=== PATIENT | male | born 1975 | race Caucasian/White ===

== ENCOUNTER 2017-07-11 06:15 | Emergency (ER) | payer OTHER ==
[~2017-07-11] VITALS: Ht 180.3 cm; Wt 100.6 kg
[~2017-07-11 06:15] MED LIST: AMOX TR-K CLV1 EAC4 PO; CIPRO500 MG PO; FLAGYL500 MG PO; HYDROCODON-ACE1 EAC7 PO; LORTAB 5-325 M1 EACH PO; MEN'S ONE DAIL1 EACH PO; NAPROSYN-EC500 MG PO; NORCO 5/3251 TABLET PO; ZOFRAN ODT4 MG PO; ZOFRAN4 MG PO
[2017-07-11 07:17] LABS: EOSINOPHIL (%) 2.9 % (0-5); EOSINOPHIL COUNT 0.2 K/uL (0-0.3); HEMATOCRIT 41.4 % (38.0-50.0); IMMATURE GRANULOCYTE (%) 0.3 % (0.0-0.7); INSTRUMENT ABS NEUTROPHIL CT 3.7 K/uL; MCH 32.5 PG (29.0-34.0); MCHC 35.5 G/DL (30.0-36.0); MCV 91.4 FL (86-99); MEAN PLAT.VOLUME 8.6 uM^3 (9.0-12.4); MONOCYTE (%) 11.3 % (3-12); MONOCYTE COUNT 0.8 K/uL (0-0.8); NEUTROPHIL (%) 55.6 % (45-76); NEUTROPHIL COUNT 3.7 K/uL (1.8-6.4); PLATELET COUNT 254 K/uL (156-360); RBC DIS.WIDTH-CV 11.3 % (11.8-14.6); RBC DIS.WIDTH-SD 38.3 % (39-53); RED BLOOD COUNT 4.53 M/uL (4.00-5.50); WHITE BLOOD COUNT 6.7 K/uL (4.1-10.2)
[2017-07-11 07:37] LABS: CHLORIDE 108 mEq/L (99-109); SODIUM 138 mEq/L (136-147)
[2017-07-11 07:40] LABS: GLUCOSE 103 mg/dL (70-99)
[2017-07-11 07:41] LABS: ANION GAP 5 MEQ/L (2-14)
[2017-07-11 07:42] LABS: TOTAL BILIRUBIN 0.8 mg/dL (0.0-1.0)
[2017-07-11 07:43] LABS: ALKALINE PHOSPHATASE 42 IU/L (3-129); GFR ESTIMATE (CALCULATED) > 59 mL/min/ (58.99-99999)
[2017-07-11 07:44] LABS: UREA NITROGEN (BUN) 13 mg/dL (9-23)
[2017-07-11 07:47] LABS: LIPASE 35 U/L (1.0-51.0)
[2017-07-11 08:01] LABS: ADD MIUA? NO; BILIRUBIN NEGATIVE; BLOOD NEGATIVE; COLOR STRAW ((YELLOW)); GLUCOSE (STRIP) NEGATIVE; KETONES NEGATIVE; LEUKOCYTES NEGATIVE; NITRITE NEGATIVE; PROTEIN (STRIP) NEGATIVE; SPECIFIC GRAVITY 1.005 (1.000-1.030); UCUL ADDED? NO; UROBILINOGEN 0.2 MG/DL (0.2-1.0)
[2017-07-11] MEDS ORDERED: AUGMENTIN875 MG PO (11:03)
[2017-07-11 11:22] VITALS: BP 140/94
== END 2017-07-11 11:22 | disposition home or self-care (01) ==
LOC: EME 06:15
PROVIDERS: Emergency Medicine
DX: K52.9 Noninfective gastroenteritis and colitis, unspecified (principal); Z90.49 Acquired absence of other specified parts of digestive tract; Z88.2 Allergy status to sulfonamides
CPT/HCPCS: 74177; 80053; 81003; 83690; 85025; 99281; 99285; J2405; J7030

== ENCOUNTER 2018-01-19 11:35 | Emergency (ER) | payer OTHER ==
[~2018-01-19] VITALS: Ht 170.2 cm; Wt 101.9 kg
[~2018-01-19 11:35] MED LIST changes: +AUGMENTIN875 MG PO
[2018-01-19 12:24] LABS: HEMATOCRIT 38.8 % (38.0-50.0); MCH 32.7 PG (29.0-34.0); MCHC 36.1 G/DL (30.0-36.0); MCV 90.7 FL (86-99); PLATELET COUNT 250 K/uL (156-360); RBC DIS.WIDTH-CV 11.9 % (11.8-14.6); RBC DIS.WIDTH-SD 39.7 % (39-53); RED BLOOD COUNT 4.28 M/uL (4.00-5.50)
[2018-01-19 12:34] LABS: ALBUMIN 4.4 g/dL (3.2-4.8)
[2018-01-19 12:35] LABS: CHLORIDE 107 mEq/L (99-109); POTASSIUM 4.3 mEq/L (3.7-5.4); SODIUM 140 mEq/L (136-147)
[2018-01-19 12:37] LABS: GLUCOSE 109 mg/dL (70-99); TOTAL PROTEIN 7.2 g/dL (6.4-8.3)
[2018-01-19 12:39] LABS: TOTAL BILIRUBIN 0.6 mg/dL (0.0-1.0)
[2018-01-19 12:39] LABS: APPEARANCE CLEAR ((CLEAR)); BILIRUBIN NEGATIVE; BLOOD NEGATIVE; COLOR COLORLESS ((YELLOW)); GLUCOSE (STRIP) NEGATIVE; KETONES NEGATIVE; LEUKOCYTES NEGATIVE; NITRITE NEGATIVE; PROTEIN (STRIP) NEGATIVE; SPECIFIC GRAVITY 1.003 (1.000-1.030); UCUL ADDED? NO; UROBILINOGEN 0.2 MG/DL (0.2-1.0)
[2018-01-19 12:40] LABS: ALKALINE PHOSPHATASE 46 IU/L (3-129)
[2018-01-19 12:41] LABS: CREATININE 0.9 mg/dL (0.6-1.3); GFR ESTIMATE (CALCULATED) > 59 mL/min/ (58.99-99999)
[2018-01-19 12:42] LABS: AST (GOT) 22 IU/L (2-34); UREA NITROGEN (BUN) 14 mg/dL (9-23)
[2018-01-19 12:44] LABS: ALT (GPT) 31 IU/L (3-49); LIPASE 41 U/L (1.0-51.0)
[2018-01-19 13:02] LABS: TROP-I INTERPRETATION NEGATIVE; TROPONIN-I < 0.01 ng/mL (0.0-0.30)
[2018-01-19 15:49] LABS: TROP-I INTERPRETATION NEGATIVE; TROPONIN-I < 0.01 ng/mL (0.0-0.30)
[2018-01-19] MEDS ORDERED: NAPROXEN500 MG PO (16:03)
[2018-01-19 16:25] VITALS: BP 132/77
== END 2018-01-19 16:42 | disposition home or self-care (01) ==
LOC: EME 11:35
PROVIDERS: Physician Assistant
DX: R07.9 Chest pain, unspecified (principal); M54.9 Dorsalgia, unspecified; Z88.2 Allergy status to sulfonamides
CPT/HCPCS: 71275; 80053; 81003; 83690; 84484; 85027; 93005; 99281; 99285; J1885